=== PATIENT | male | born 2000 | race Caucasian/White ===

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

== ENCOUNTER 2019-04-24 18:31 | Emergency (ER) | payer SELFPAY ==
[~2019-04-24] VITALS: Ht 175.3 cm; Wt 79.5 kg
[~2019-04-24 18:31] MED LIST: SULF5DRO OP
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
[2019-04-24] MEDS ORDERED: HYDROcodone/APAP 5 MG/325 MG (LORTAB) TAB PO ONE (19:00)
[2019-04-24] MEDS ORDERED: fentaNYL INJECTION 100 MCG/2 ML AMP IM STA (19:14)
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
[2019-04-24] MEDS ORDERED: ACHD5005 PO (20:16)
== END 2019-04-24 20:20 | disposition home or self-care (01) ==
LOC: EDUNIT# 18:31 → ER FS 18:32
DX: S82.141A Displaced bicondylar fracture of right tibia, initial encounter for closed fracture (principal); S30.810A Abrasion of lower back and pelvis, initial encounter; S80.212A Abrasion, left knee, initial encounter; V00.138A Other skateboard accident, initial encounter; Y93.51 Activity, roller skating (inline) and skateboarding
CPT/HCPCS: 73590